=== PATIENT | female | born 1985 | race American Indian/Alaskan Native ===

== ENCOUNTER 2016-08-08 06:55 | Inpatient (IN) | payer OTHER ==
[2016-08-08 06:14] VITALS: BMI 30.4
[2016-08-08] MEDS ORDERED: cefOXitin IV 2 gm in Dextrose 2 GM/50 ML BAG IVPB ONE ×2 (06:56→07:25)
[2016-08-08] MEDS ORDERED: Sodium Citrate/Citric Acid 15 ml Sol PO ONE (06:56)
[2016-08-08] MEDS: Lactated Ringer's 1,000 ML IV SCH (07:20)
[2016-08-08] MEDS ORDERED: Sodium Citrate/Citric Acid 15 ml Sol ONE (07:24)
[2016-08-08 07:31] LABS: BASO % 0.2 % (0.0-2.0); EOS # 0.2 K/uL (0.0-0.7); EOS % 2.2 % (0.0-4.0); HEMATOCRIT 30.8 % (34.0-47.0); LYMPH # 2.6 K/uL (1.0-4.3); LYMPH % 33.5 % (20.0-40.0); MEAN CELL VOLUME 86.3 fL (81.0-99.0); MEAN CORPUSCULAR HEMOGLOBIN 29.7 pg (27.0-31.0); MEAN CORPUSCULAR HGB CONC 34.4 g/dL (33.0-37.0); MEAN PLATELET VOLUME 8.5 fL (7.2-11.7); MONO # 0.8 K/uL (0.0-0.8); MONO % 10.9 % (0.0-10.0); NRBC % 0.2 % (0.0-2.0); RED CELL DISTRIBUTION WIDTH 14.5 % (11.5-14.5); WHITE BLOOD COUNT 7.8 K/uL (4.8-10.8)
[2016-08-08 07:38] LABS: CHLORIDE 106 mmol/L (98-107); POTASSIUM 3.7 mmol/L (3.6-5.2); SODIUM 135 mmol/L (132-148)
[2016-08-08 07:41] LABS: BLOOD UREA NITROGEN 6 mg/dL (7-17); CALCIUM 8.2 mg/dl (8.6-10.4); CARBON DIOXIDE 21 mmol/L (22-30); GFR AFRICAN-AMERICAN > 60; GLUCOSE,RANDOM 75 mg/dL (65-105)
[2016-08-08] MEDS ORDERED: Morphine 1 mg/ml preservative-free Inj(Duramorph) ONE (07:45)
[2016-08-08] MEDS ORDERED: Phenylephrine 10 mg/ml Inj ONE (07:49)
--- NOTE | 2016-08-08 07:51 | OBADHP ---
Datetime: 08/08/2016 07:42 Admit Comment, IP Provider: chief complaint-term , previous csection HPI 30 y/o at 39.1 wga here for scheduled repeat csection.Patient denies fever, chills, na usea, vomiting, chest pain, shortness of breath course anemia, gbs positive PMH denies PSH csection;left salpingectomy OBGYN HX ;CSECTIONX1; IABX2. ECTOPIC X1; Hx of chlamydia Social hx hx of THC use Exam see exam section A/P 30 y/o at 39.1 wga here for scheduled repeat csection -admit -see orders -urine drug screen -infomred consent obtained and on chart Pelvic Type - PN: Adequate Extremities - PN: Normal Abdomen - PN: Normal Back - PN: Normal Lungs - PN: Normal Heart - PN: Normal Neurologic - PN: Normal General - PN: Normal Contraction Comments Provider: occ Gestation - Est Wks by US: 39.1 IP Hx Assessment: The History has been Reviewed and is Current Vital Signs Provider: Reviewed; Within Normal Limits IP Chief Complaint: Scheduled Section FHR Category Provider Fetus A: Category I Genitourinary Exam: Normal DTRs - PN: Normal EGA AdmitDate IP: 39.1 IP Adm Impression: Term, intrauterine IP Admit Plan: Admit to unit; Initiate Section protocol
[2016-08-08 07:55] LABS: RBC URINE < 1 /hpf (0-3); URINE BILIRUBIN NEGATIVE (NEGATIVE); URINE BLOOD NEGATIVE (NEGATIVE); URINE COLOR Yellow (YELLOW); URINE GLUCOSE (UA) NORMAL (Normal); URINE KETONE NEGATIVE (NEGATIVE); URINE LEUKOCYTE ESTERASE NEG Leu/uL (Negative); URINE PROTEIN NEGATIVE (NEGATIVE); URINE UROBILINOGEN NORMAL mg/dL (0.2-1.0); WBC URINE 1 /hpf (0-5)
[2016-08-08] MEDS ORDERED: Propofol 10 mg/ml Inj (20 ML) ONE (08:53)
[2016-08-08] MEDS ORDERED: Vitamins A & D Oint UD Foilpak ONE (09:14)
--- NOTE | 2016-08-08 10:09 | OBDS ---
DELIVERY PERSONNEL Delivery Doctor: Varinder Leal MD Scrub Nurse: Jacquie Navarro Senior Web Applications Developer: Génesis Ma RN Anesthesiologist: MATERNAL INFORMATION Delivery Anesthesia: Spinal; General Medications in Delivery: Pitocin 40 units IV; Methergine 0.2mg x 1 dose in Left Deltoid Estimated Blood Loss (ml): 700 Placenta Cultured: Yes Maternal Complications: None RN Comments: Liveborn Baby Boy. 5-9 Provider Comments: repeat csection done ebl 700cc apgars 5 at 1 min of oufe and 9 at 5 min of life normal uterusand left tube.absent right tube.boty ovaries normal anesthesia spinal converted to general patient stable cord blood ph 7.18 LABOR SUMMARY EDC: 08/14/2016 00:00 No. Babies in Womb: 1 Attempted: No Labor Anesthesia: None LABOR INFORMATION Reason for Induction: Not Applicable Oxytocin: N/A Group B Beta Strep: Positive Antibiotics # of Doses: 1 Antibiotics Time of Last Dose: MEfoxin 2gm IV @ 0752 Steroids Given: None Reason Steroids Not Administered: Not Applicable MEMBRANES Membranes Rupture Method: Artificial Rupture of Membranes: 08/08/2016 09:01 Length of Rupture (hrs): 0.10 Amniotic Fluid Color: Clear Amniotic Fluid Amount: Moderate Amniotic Fluid Odor: Normal STAGES OF LABOR Stage 3 hrs: 0 Stage 3 min: 1 CSECTION DELIVERY Primary Indication: Repeat Elective CSection Urgency: Elective CSection Incidence: Repeat Labor: No Labor Elective: Elective CSection Incision: Lower Uterine Transverse BABY A INFORMATION Infant Delivery Date/Time: 08/08/2016 09:07 Method of Delivery: Born in Route : No : N/A Forceps: N/A Vacuum Extraction: Successful Shoulder Dystocia : No ASSISTED DELIVERY BABY A Indication for Assisted Delivery: Complicated delivery of the baby Catheter Prior to Procedure: Flores catheter in and draining clear yellow urine. Position Vacuum/Forcep Apply: Right Occipital Anterior Vacuum Number of Pulls: 2 Vacuum Number of PopOffs: NONE Vacuum Maximum Pressure Obtained: 40-50 Reduce Pressure btwn Ctx: Yes Vacuum [employer] Head: Nem[place]olin II M-Style Mushroom Cup ([employer]/ [employer]) Total Time Vacuum Applied: 5-10 seconds Vacuum/Forceps Comment: Complicated delivery of the baby. Vacuum assist delivery done. LOt#[id number] Ex p 03/09/2019 SHOULDER DYSTOCIA BABY A Delivery Date/Time: 08/08/2016 09:07 PRESENTATION/POSITION BABY A Presentation: Cephalic Cephalic Presentation: Vertex Vertex Position: Right Occipital Anterior Breech Presentation: N/A PLACENTA INFORMATION BABY A Placenta Delivery Time : 08/08/2016 09:08 Placenta Method of Delivery: Manual Removal Placenta Status: Delivered SCORES BABY A Heart Rate 1 min: >100 bpm Resp Effort 1 min: Absent Reflex Irritability 1 min: Cough or Sneeze or Pulls Away Muscle Tone 1 min: Flaccid Color 1 min: Body Lebam, Extremities Blue Resuscitation Effort 1 min: Tactile Stimulation; Oxygen; PPV/NCPAP SCORE 1 MIN: 5 Heart Rate 5 min: >100 bpm Resp Effort 5 min: Good Cry Reflex Irritability 5 min: Cough or Sneeze or Pulls Away Muscle Tone 5 min: Active Motion Color 5 min: Body Lebam, Extremities Blue Resuscitation Effort 5 min: N/A SCORE 5 MIN: 9 INFANT INFORMATION BABY A Gestational Age at Delivery: 39.1 Gestational Status: Term Infant Outcome : Liveborn Infant Condition : Stable Infant Sex: Male IDENTIFICATION/MEDS BABY A ID Band Number: [id number] ID Band Location: Left Leg; Left Arm Sensor Applied: Yes Sensor Number: [id number] Sensor Location : Cord Clamp Vitamin K Given : Not Given Erythromycin Given: Not Given WEIGHT/LENGTH BABY A Infant Birthweight (gms): 3095 Weight (lb): 6 Infant Weight (oz): 13 Infant Length Inches: 19.00 Infant Length cms: 48.3 CORD INFORMATION BABY A No. Cord Vessels: 3 Nuchal Cord : N/A Cord pH Baby Arterial: 7.18 ( aware) Cord Blood Taken: Yes Infant Suction: Mouth; Nose ASSESSMENT BABY A Complications: None Physical Findings at Delivery: Within Normal Limits Infant Respirations: Nasal Flaring Ironworker Foreman/ALS Called : Yes Infant Care By: /Rodrigue LOMELI
--- NOTE | 2016-08-08 10:57 | OP ---
PROCEDURE DATE: 08/08/2016 PREOPERATIVE DIAGNOSES: 1. Previous section. The patient declined vaginal after . 2. Term intrauterine . POSTOPERATIVE DIAGNOSES: 1. Previous section. The patient declined vaginal after . 2. Term intrauterine . PROCEDURE PERFORMED: Repeat low transverse section. SURGEON: Jacob Leal MD. BANQUET PREP COOK: Donny Dick MD. Please note that the procedure required a certified surgical technician to assist with the entry into the abdominal cavity, to assist with the dissection as well as to assist with the delivery of the and the closure of the abdominal wall. The surgical aide was present and scrubbed for the entire duration of the procedure. ANESTHESIOLOGIST: Dr. Sherman Epperson. ANESTHESIA: Spinal converted into general endotracheal. COMPLICATIONS: None. ESTIMATED BLOOD LOSS: 700 mL. FINDINGS: A male in vertex presentation, Apgars of 5 at 1 minute and 9 at 5 minutes, normal uterus, normal-appearing left tube, absent right fallopian tube due to previous ectopic surgery as mentioned by the patient and normal- appearing ovaries bilaterally. SPECIMEN: Placenta and cord blood. The patient's condition at the end of procedure stable. PROCEDURE IN DETAIL: After informed consent was obtained, the patient was taken to the operating room where spinal anesthesia was administered by the anesthesia team. She was thereafter placed in dorsal supine position with a leftward tilt. She was then prepped and draped in the usual sterile manner. At this point, the patient was noted to not have adequate anesthesia and thereafter, a second trial of spinal was done by the anesthesiologist, but despite that, the patient did not get adequate anesthesia in the lower segment and she was still feeling discomfort in the lower abdomen. Thereafter, decision was made to convert to general anesthesia. She was once again prepped and draped in the usual sterile manner where general anesthesia was induced and the patient was intubated without any difficulty. In the previous scar, incision was made and this was carried down to the underlying layer of the fascia bluntly. The fascia was then incised in the midline and the incision was extended bluntly. The superior aspect of fascial incision was then grasped with Pantera clamps, elevated, and the underlying rectus muscles dissected off. Attention was then turned to the inferior aspect of the fascial incision, which in a similar fashion was grasped with Pantera clamps, elevated, and the underlying rectus muscles dissected off. The rectus muscle was in the midline and the peritoneum was entered bluntly. The peritoneum was manually stretched. The bladder blade was then inserted and the lower uterine segment identified. A transverse incision was made in the lower uterine segment away from the bladder. This incision was extended laterally with bandage scissors. The membranes were ruptured and clear amniotic fluid was noted. Difficulty was encountered in delivering the 's head.In order to create room the right rectus was partially transected transversely. The infant's head was pulled out and due to the difficulty encountered, a vacuum was applied. Two pulls lasting 10 seconds each approximately were done and the infant's head was then delivered atraumatically followed by the delivery of the body and the shoulders. The cord was then clamped and cut and the nose and the mouth were suctioned. The was handed over to the waiting pediatricians. A segment of the cord was taken for cord blood pH. The placenta was then manually removed and the uterus was exteriorized and cleared of all clots and debris. The uterine incision was repaired with 0 Polysorb in a running-locked fashion. A second layer of 0 Biosyn was used to imbricate the first layer and also to obtain hemostasis. Adequate hemostasis was noted with the uterine incision repair site. The pelvis and the cul-de-sac were irrigated and suctioned. The uterus was returned to the patient's abdomen and the repair was inspected for hemostasis. Bleeding was noted from the mid section of the repair and this was suture ligated using [id number] stitch of 0 Polysorb. Adequate hemostasis was noted from the uterine incision repair site. The peritoneum was thereafter closed with 2-0 Polysorb in a running fashion. The right rectus muscle was reapproximated with 2-0 Polysorb in [id number] sutures. Where the rectus muscles had been in the midline were also reapproximated using 2-0 Polysorb via mattress sutures. The fascia was closed with 0 Vicryl in a running fashion. The subcutaneous tissue was reapproximated with 2-0 Polysorb. The skin was then closed with 3-0 Monocryl in a subcuticular manner. The skin was cleaned and the dressing was applied. Please note IM Methergine was given by the anesthesiologist after the delivery of the placenta to control the bleeding. The uterus was noted to be firm. The dressing was applied and the patient was thereafter extubated and taken to the recovery room in stable condition after extubation. The sponge, lap, needle, and instrument count was correct as reported to me end of the procedure. Jacob Leal MD cc: [id number] TT: 08/08/2016 10:57:00 crystal ROYAL
[2016-08-08] MEDS: cefOXitin IV 2 gm in Dextrose 2 GM/50 ML BAG IVPB SCH ×2 (15:51→23:09)
[2016-08-08] MEDS: Oxycodone/Acetaminophen 5/325 mg Tab PO PRN (22:09)
[2016-08-09] MEDS: Oxycodone/Acetaminophen 5/325 mg Tab PO PRN ×4 (03:29→23:54)
[2016-08-09] MEDS: Lactated Ringer's 1,000 ML IV SCH ×2 (03:31→07:02)
[2016-08-09] MEDS: cefOXitin IV 2 gm in Dextrose 2 GM/50 ML BAG IVPB SCH (07:01)
[2016-08-09] MEDS: Simethicone 80 mg Chewtab PO SCH ×5 (07:03→23:59)
[2016-08-09 07:08] LABS: BASO % 0.3 % (0.0-2.0); EOS # 0.1 K/uL (0.0-0.7); HEMATOCRIT 24.9 % (34.0-47.0); LYMPH # 1.6 K/uL (1.0-4.3); LYMPH % 15.7 % (20.0-40.0); MEAN CELL VOLUME 86.7 fL (81.0-99.0); MEAN CORPUSCULAR HEMOGLOBIN 29.2 pg (27.0-31.0); MEAN CORPUSCULAR HGB CONC 33.7 g/dL (33.0-37.0); MEAN PLATELET VOLUME 8.4 fL (7.2-11.7); MONO # 0.8 K/uL (0.0-0.8); MONO % 7.4 % (0.0-10.0); RED CELL DISTRIBUTION WIDTH 14.5 % (11.5-14.5); WHITE BLOOD COUNT 10.2 K/uL (4.8-10.8)
--- NOTE | 2016-08-09 10:51 | OBPPN ---
Datetime: 08/09/2016 10:31 PP Pain Prov: Within normal limits PP Nausea Prov: Denies PP Flatus Prov: No PP BM Prov: No PP Breasts Prov: Normal PP Heart Prov: Normal PP Lungs Prov: Normal PP Abdomen/Uterus Prov: Normal PP Lochia Prov: Normal PP Vulva/Perineum Prov: Not Done PP CVA Tenderness Prov: Normal PP Extremities Prov: Normal PP C/S Incision Prov: Normal PP Progress Prov: Normal PP Comments Phys Exam Prov: Skin: warm, dry, intact Breasts: no cracked nipples Abdomen: Softly distended. (+) BS. Fundus firm, mobile, appropriately and mildy tender - at umbil icus. Incision with subcuticular closure - clean, dry, intact. Mild lochia rubra Extremities: no calf tenderness All other systems reviewed and are negative PP Impression Prov: Normal progression PP Plan Prov: Continue present management PP Progress Note Prov: Patient received in bed, room 452 - dozing; easlily awakened. Incisional pain 10/10 - just medicated. Breast- and bottlefeeding. Hungry; denies nausea, vomiting. Ambulating in r oom; voiding without difficulty. Denies dizziness. lightheadedness or palpitations. P.E.: as above. WD in NAD. Awake, alert, oriented to time, person and place. Cooperative - POD#1 H/H 8.4/24.9 Rh(+) Assessmentn: POD#1 30 yo P2, SP repeat C/S. Afebrile; vital signs stable. Anemia noted; asymptomat ic and hemodynamically stable. Counseled to ambulate in the hallways. Clinically stable. Plan: 1) Start iron /tID 2) Continue present management Vital Signs Provider PP: Reviewed; Within Normal Limits
--- NOTE | 2016-08-10 09:23 | OBPPN ---
Datetime: 08/10/2016 09:16 PP Pain Prov: Within normal limits PP Nausea Prov: Denies PP Flatus Prov: Yes PP BM Prov: No PP Breasts Prov: Normal PP Heart Prov: Normal PP Lungs Prov: Normal PP Abdomen/Uterus Prov: Normal PP Lochia Prov: Normal PP Vulva/Perineum Prov: Normal PP CVA Tenderness Prov: Normal PP Extremities Prov: Normal PP C/S Incision Prov: Normal PP Progress Prov: Normal PP Comments Phys Exam Prov: Abdomen soft, good bowel sounds. Incision C/D/I.Appropriate incisional t enderness. PP Impression Prov: Normal progression PP Plan Prov: Continue present management PP Progress Note Prov: Stable. Anemia. Fe Po. Anticipate discharge tomorrow. IP PP Procedures: None Vital Signs Provider Details PP: HgB 8.4g/dl
[2016-08-10] MEDS: Simethicone 80 mg Chewtab PO SCH ×4 (10:11→21:59)
[2016-08-10] MEDS: Oxycodone/Acetaminophen 5/325 mg Tab PO PRN ×3 (12:21→22:06)
[2016-08-11 08:09] VITALS: BP 112/74; PULSE 76; RESP 18; TEMP 98.4; O2SAT 99
--- NOTE | 2016-08-11 09:06 | OBDCSUM ---
Datetime: 08/11/2016 09:03 Discharged to, Provider: Home Follow up at, Provider: obgyn clinic Disch Instr Diet: Regular Discharge Instructions, Provider: Routine instructions given Discharge Diagnosis, Provider: Term Delivered Discharge Time: 08/11/2016 09:03 Follow up in weeks, Provider: 1 week Disch Referrals: None Disch Activity Restrictions: No exercising; No lifting; Minimize stair-climbing; No sexual activity; Nothing in vagina - [place], tampons, douche Discharge Comment, Provider: go to er if you have fever, severe pain, heavy bleeding, pain or rednes s in calf msucles or any other problems Discharge Diagnosis Prov Other: s/p csection
--- NOTE | 2016-08-11 09:06 | OBPPN ---
Datetime: 08/11/2016 09:00 PP Pain Prov: Within normal limits PP Nausea Prov: Denies PP Flatus Prov: Yes PP BM Prov: No PP Heart Prov: Normal PP Lungs Prov: Normal PP Abdomen/Uterus Prov: Normal PP Lochia Prov: Normal PP CVA Tenderness Prov: Normal PP Extremities Prov: Normal PP C/S Incision Prov: Normal PP Progress Prov: Normal PP Impression Prov: Normal progression PP Plan Prov: Discharge PP Progress Note Prov: S-patient c/o incisional pain and back pain which is controlled with percoce t.Tolerating regular diet.Ambulating and voiding without difficulty.Passing flatus. O-VSS Afebrile fundus firm and below umbilicus Incision clean, dry and intact Extremities no calf tenderness A/P Patient s/p csection pod 3 doing well.Anemia noted -discharge today -follow up in clinic in 1 week Vital Signs Provider PP: Reviewed; Within Normal Limits
[2016-08-11] MEDS: Simethicone 80 mg Chewtab PO SCH (10:37)
== END 2016-08-11 13:00 | disposition home or self-care (01) | DRG 370 ==
LOC: C.4D 06:55 → C.4M 12:40
PROVIDERS: ADMIT Student in an Organized Health Care Education/Training Program; ATTEND Student in an Organized Health Care Education/Training Program
PROC: 10D00Z1 Extraction of Products of Conception, Low, Open Approach (ICD-10-PCS; principal; 2016-08-08)
DX: O34.211 Maternal care for low transverse scar from previous cesarean delivery (principal); O99.02 Anemia complicating childbirth; D64.9 Anemia, unspecified; Z37.0 Single live birth; Z3A.39 39 weeks gestation of pregnancy; O99.824 Streptococcus B carrier state complicating childbirth